=== PATIENT | male | born 1960 | race Caucasian/White ===

== ENCOUNTER 2023-10-26 19:56 | Emergency (ER) | payer OTHER, SELFPAY ==
[2023-10-27] MEDS ORDERED: GLIP10TA18 PO (10:43)
[2023-10-27] MEDS ORDERED: VITA1CHW3 PO (14:40)
== END 2023-10-26 20:15 | disposition left against medical advice (07) ==
LOC: M ED 19:56
DX: Z53.21 Procedure and treatment not carried out due to patient leaving prior to being seen by health care provider (principal)

== ENCOUNTER 2023-10-27 10:31 | Inpatient (IN) | payer BC, MEDICARE, SELFPAY ==
[~2023-10-27] VITALS: Ht 180.3 cm; Wt 96.5 kg
[~2023-10-27 10:31] MED LIST: NICOTINE 14 MG/24 HR TRANSDERMAL TD SCH
[2023-10-27] MEDS ORDERED: GLIP10TA18 PO (10:43)
[2023-10-27 11:37] LABS: BASO % 0.2 % (0.0-1.0); EOS % 0.1 % (0.0-3.0); HEMATOCRIT 40.5 % (42.0-52.0); HEMOGLOBIN 13.1 g/dl (13.5-17.5); LYMPH # 1.1 10^3/uL (1.5-5.0); LYMPH % 7.1 % (24.0-44.0); MEAN CORPUSCULAR HGB CONC 32.3 g/dl (32.0-36.5); MEAN CORPUSCULAR VOLUME 89.6 fl (80.0-96.0); MONO # 1.2 10^3/uL (0.0-0.8); MONO % 8.1 % (2.0-8.0); NEUTROPHILS # 12.8 10^3/uL (1.5-8.5); NEUTROPHILS % 84.1 % (36.0-66.0); PLATELET COUNT, AUTOMATED 206 10^3/uL (150-450); RED BLOOD COUNT 4.52 10^6/uL (4.30-6.10); WHITE BLOOD COUNT 15.3 10^3/uL (4.0-10.0)
[2023-10-27 11:44] LABS: ERYTHROCYTE SEDIMENTATION RATE 59 mm/hr (0-20)
[2023-10-27] MEDS: NS 1,000 ML IV ONE (12:10)
[2023-10-27] MEDS: cefTRIAXone SOD 1 GM in D5W MINI-BAG PLUS 50 ML IV ONE (12:27)
[2023-10-27] MEDS: NICOTINE 21MG/24HR 1 EA TRANSDERMAL TD ONE (13:13)
[2023-10-27 13:18] LABS: PROCALCITONIN 0.15 ng/ml
[2023-10-27 13:19] LABS: ALBUMIN 2.8 G/DL (3.2-5.2); ALKALINE PHOSPHATASE 144 U/L (46-116); ALT/SGPT 14 U/L (7.0-40); AST/SGOT 18 U/L (<34); BILIRUBIN,DIRECT 0.7 MG/DL (<0.4); BILIRUBIN,TOTAL 1.4 MG/DL (0.3-1.2); BLOOD UREA NITROGEN 18 MG/DL (9-23); CALCIUM LEVEL 8.6 MG/DL (8.3-10.6); CARBON DIOXIDE LEVEL 28 MMOL/L (20-31); CHLORIDE LEVEL 106 MMOL/L (98-107); CREATININE FOR GFR 1.16 MG/DL (0.70-1.30); GLOMERULAR FILTRATION RATE > 60.0 (>49); GLUCOSE, FASTING 72 MG/DL (74-106); POTASSIUM SERUM 3.5 MMOL/L (3.5-5.1); SODIUM LEVEL 141 MMOL/L (136-145)
[2023-10-27] MEDS ORDERED: ceFAZolin SOD 1 GM in D5W MINI-BAG PLUS 50 ML IV SCH (14:25)
[2023-10-27] MEDS ORDERED: GLUCOSE 4 GM CHEW PO PRN (14:25)
[2023-10-27] MEDS ORDERED: PERCOCET 5MG/325MG TAB PO PRN (14:25)
[2023-10-27] MEDS ORDERED: GLUCAGON INJ 1MG VIAL SC PRN (14:25)
[2023-10-27] MEDS ORDERED: ACETAMINOPHEN TAB 650MG DOSE (2X325MG) PO PRN (14:25)
[2023-10-27] MEDS ORDERED: NALOXONE INJ 0.4MG/1ML VIAL IV PRN (14:25)
[2023-10-27] MEDS ORDERED: SENOKOT S TAB PO PRN (14:25)
[2023-10-27] MEDS ORDERED: DEXTROSE 50% 50ML SYRINGE IV PRN (14:25)
[2023-10-27] MEDS ORDERED: VITA1CHW3 PO (14:40)
[2023-10-27] MEDS ORDERED: HOME MED LIST COMPLETE! XX SCH (14:45)
[2023-10-27 14:50] LABS: CHOLESTEROL LEVEL 121 MG/DL (<200); CHOLESTEROL RISK RATIO 4.24 (<5); FREE T3 2.5 PG/ML (2.3-4.2); HDL CHOLESTEROL 28.5 MG/DL (>40); LDL CHOLESTEROL 75.1 MG/DL (<100); NON-HDL-C 92.5 MG/DL; TRIGLYCERIDES LEVEL 87 MG/DL (<150)
[2023-10-27 14:53] LABS: FREE T4 1.15 NG/DL (0.89-1.76)
[2023-10-27] MEDS ORDERED: IPRATROPIUM 0.5MG/ALBUTEROL 2.5MG INH SOL UD 3ML (DUONEB) NEB PRN (16:10)
[2023-10-27] MEDS ORDERED: ISOVUE-370 76% 100ML VIAL As Ordered ONE (16:13)
[2023-10-27 16:40] VITALS: BP 152/73; TEMP 98.1; O2SAT 98
[2023-10-27] MEDS: IPRATROPIUM 0.5MG/ALBUTEROL 2.5MG INH SOL UD 3ML (DUONEB) NEB ONE (16:56)
[2023-10-27] MEDS ORDERED: CEFEPIME HCL 1 GM in D5W MINI-BAG PLUS 50 ML IV SCH (17:00)
[2023-10-27] MEDS: INSULIN LISPRO (NovoLOG) PER UNIT SC SCH ×2 (17:14→20:21)
[2023-10-27] MEDS: FUROSEMIDE 40MG/4ML VIAL IV ONE (17:34)
[2023-10-27] MEDS: LACTOBACILLUS ACIDOPHILUS CAP (BACID) PO SCH (17:34)
[2023-10-27] MEDS: ENOXAPARIN 40MG/0.4ML SYRINGE (J1650 PER 10MG) SC ONE (17:34)
[2023-10-27] MEDS: FUROSEMIDE 40MG/4ML VIAL IV SCH (17:35)
[2023-10-27] MEDS: CEFEPIME HCL 2 GM in D5W MINI-BAG PLUS 50 ML IV SCH (18:35)
[2023-10-27] MEDS: IPRATROPIUM 0.5MG/ALBUTEROL 2.5MG INH SOL UD 3ML (DUONEB) NEB SCH (19:44)
[2023-10-27 19:48] VITALS: BP 175/82; TEMP 98.3; O2SAT 99
[2023-10-27 19:50] LABS: CK-MB VALUE MASS 2.1 NG/ML (<3.6)
[2023-10-27 19:53] LABS: MB/CK RELATIVE INDEX 1.03 (< OR =4)
[2023-10-27 20:00] VITALS: BP 175/82; TEMP 98.3; O2SAT 99
[2023-10-27] MEDS ORDERED: ceFAZolin SOD 2 GM in IV 1 EA IV SCH (22:00)
[2023-10-27 23:39] VITALS: BP 152/70; TEMP 98; O2SAT 96
[2023-10-28] VITALS (22 sets, daily range): BP systolic 136–169; BP diastolic 63–79; TEMP 97.4–98.6; O2SAT 86–99
[2023-10-28 02:09] LABS: CK-MB VALUE MASS 1.1 NG/ML (<3.6)
[2023-10-28 02:10] LABS: MB/CK RELATIVE INDEX 0.82 (< OR =4)
[2023-10-28] MEDS: amLODIPine 5 MG TAB PO ONE (02:23)
[2023-10-28 06:44] LABS: BASO % 0.1 % (0.0-1.0); EOS % 0.3 % (0.0-3.0); HEMATOCRIT 39.9 % (42.0-52.0); HEMOGLOBIN 13.1 g/dl (13.5-17.5); MEAN CORPUSCULAR HEMOGLOBIN 28.8 pg (27.0-33.0); MEAN CORPUSCULAR HGB CONC 32.8 g/dl (32.0-36.5); MEAN CORPUSCULAR VOLUME 87.7 fl (80.0-96.0); MONO # 1.2 10^3/uL (0.0-0.8); MONO % 8.4 % (2.0-8.0); NEUTROPHILS # 11.8 10^3/uL (1.5-8.5); NEUTROPHILS % 83.6 % (36.0-66.0); PLATELET COUNT, AUTOMATED 196 10^3/uL (150-450); RED BLOOD COUNT 4.55 10^6/uL (4.30-6.10); WHITE BLOOD COUNT 14.1 10^3/uL (4.0-10.0)
[2023-10-28 07:09] LABS: BLOOD UREA NITROGEN 18 MG/DL (9-23); CALCIUM LEVEL 8.7 MG/DL (8.3-10.6); CARBON DIOXIDE LEVEL 29 MMOL/L (20-31); CHLORIDE LEVEL 102 MMOL/L (98-107); CREATININE FOR GFR 1.22 MG/DL (0.70-1.30); GLOMERULAR FILTRATION RATE > 60.0 (>49); GLUCOSE, FASTING 99 MG/DL (74-106); MAGNESIUM LEVEL 1.8 MG/DL (1.8-2.4); POTASSIUM SERUM 3.3 MMOL/L (3.5-5.1); SODIUM LEVEL 137 MMOL/L (136-145)
[2023-10-28] MEDS: MORPHINE 4 MG/ML 1ML VIAL IV ONE (08:05)
[2023-10-28] MEDS ORDERED: ENOXAPARIN 40MG/0.4ML SYRINGE (J1650 PER 10MG) SC SCH (09:00)
[2023-10-28] MEDS: MAG SULF 1GM/100ML (MAG RUN) 1 GM in IV 1 EA IV ONE (10:04)
[2023-10-28] MEDS: NICOTINE 14 MG/24 HR TRANSDERMAL TD SCH (10:05)
[2023-10-28] MEDS: POTASSIUM CHLORIDE 10MEQ SR TABLET PO SCH (10:05)
[2023-10-29] VITALS (9 sets, daily range): BP systolic 118–172; BP diastolic 57–83; TEMP 96.9–97.5; O2SAT 91–97
[2023-10-29 06:21] LABS: BASO % 0.3 % (0.0-1.0); EOS # 0.1 10^3/uL (0.0-0.5); EOS % 0.9 % (0.0-3.0); HEMATOCRIT 40.2 % (42.0-52.0); LYMPH # 1.1 10^3/uL (1.5-5.0); LYMPH % 9.3 % (24.0-44.0); MEAN CORPUSCULAR HEMOGLOBIN 28.7 pg (27.0-33.0); MEAN CORPUSCULAR HGB CONC 32.3 g/dl (32.0-36.5); MEAN CORPUSCULAR VOLUME 88.7 fl (80.0-96.0); MONO # 0.9 10^3/uL (0.0-0.8); MONO % 8.2 % (2.0-8.0); NEUTROPHILS # 9.2 10^3/uL (1.5-8.5); NEUTROPHILS % 80.9 % (36.0-66.0); PLATELET COUNT, AUTOMATED 204 10^3/uL (150-450); RED BLOOD COUNT 4.53 10^6/uL (4.30-6.10); WHITE BLOOD COUNT 11.4 10^3/uL (4.0-10.0)
[2023-10-29 06:47] LABS: BLOOD UREA NITROGEN 24 MG/DL (9-23); CALCIUM LEVEL 8.3 MG/DL (8.3-10.6); CARBON DIOXIDE LEVEL 30 MMOL/L (20-31); CHLORIDE LEVEL 103 MMOL/L (98-107); CREATININE FOR GFR 1.28 MG/DL (0.70-1.30); GLOMERULAR FILTRATION RATE > 60.0 (>49); GLUCOSE, FASTING 117 MG/DL (74-106); POTASSIUM SERUM 3.8 MMOL/L (3.5-5.1); SODIUM LEVEL 139 MMOL/L (136-145)
[2023-10-30 04:00] VITALS: BP 170/79; TEMP 97.6; O2SAT 95
[2023-10-30 06:27] LABS: BASO % 0.4 % (0.0-1.0); EOS # 0.2 10^3/uL (0.0-0.5); EOS % 1.6 % (0.0-3.0); HEMATOCRIT 37.8 % (42.0-52.0); HEMOGLOBIN 12.4 g/dl (13.5-17.5); LYMPH # 1.2 10^3/uL (1.5-5.0); LYMPH % 11.3 % (24.0-44.0); MEAN CORPUSCULAR HEMOGLOBIN 29.2 pg (27.0-33.0); MEAN CORPUSCULAR HGB CONC 32.8 g/dl (32.0-36.5); MEAN CORPUSCULAR VOLUME 88.9 fl (80.0-96.0); MONO # 0.8 10^3/uL (0.0-0.8); MONO % 7.4 % (2.0-8.0); NEUTROPHILS # 8.5 10^3/uL (1.5-8.5); NEUTROPHILS % 78.8 % (36.0-66.0); PLATELET COUNT, AUTOMATED 236 10^3/uL (150-450); RED BLOOD COUNT 4.25 10^6/uL (4.30-6.10); WHITE BLOOD COUNT 10.8 10^3/uL (4.0-10.0)
[2023-10-30 06:50] LABS: BLOOD UREA NITROGEN 30 MG/DL (9-23); CARBON DIOXIDE LEVEL 30 MMOL/L (20-31); CHLORIDE LEVEL 101 MMOL/L (98-107); CREATININE FOR GFR 1.18 MG/DL (0.70-1.30); GLOMERULAR FILTRATION RATE > 60.0 (>49); GLUCOSE, FASTING 190 MG/DL (74-106); MAGNESIUM LEVEL 2.1 MG/DL (1.8-2.4); POTASSIUM SERUM 3.7 MMOL/L (3.5-5.1); SODIUM LEVEL 138 MMOL/L (136-145)
[2023-10-30 08:00] VITALS: BP_SYST 133; BP_SYST 170; BP_DIAS 64; BP_DIAS 79; TEMP 97.4; TEMP 97.6; O2SAT 95; O2SAT 96
[2023-10-30 12:00] VITALS: BP 158/72; TEMP 97.6; O2SAT 96
[2023-10-30 16:00] VITALS: BP 136/62; TEMP 98; O2SAT 96
[2023-10-30] MEDS: cefTRIAXone SOD 2 GM in D5W MINI-BAG PLUS 50 ML IV SCH (18:15)
[2023-10-30 20:38] VITALS: BP 137/61; TEMP 97.5; O2SAT 95
[2023-10-30 23:35] VITALS: BP 136/69; TEMP 96.9; O2SAT 90
[2023-10-31] VITALS: BP 136/69; TEMP 96.9; O2SAT 90
[2023-10-31 05:51] VITALS: BP 158/78
[2023-10-31 06:29] LABS: BASO % 0.4 % (0.0-1.0); EOS # 0.2 10^3/uL (0.0-0.5); EOS % 1.7 % (0.0-3.0); LYMPH % 9.8 % (24.0-44.0); MEAN CORPUSCULAR HEMOGLOBIN 28.8 pg (27.0-33.0); MEAN CORPUSCULAR HGB CONC 32.5 g/dl (32.0-36.5); MEAN CORPUSCULAR VOLUME 88.7 fl (80.0-96.0); MONO # 0.9 10^3/uL (0.0-0.8); MONO % 8.7 % (2.0-8.0); NEUTROPHILS # 8.3 10^3/uL (1.5-8.5); NEUTROPHILS % 79.1 % (36.0-66.0); PLATELET COUNT, AUTOMATED 246 10^3/uL (150-450); RED BLOOD COUNT 4.51 10^6/uL (4.30-6.10); WHITE BLOOD COUNT 10.4 10^3/uL (4.0-10.0)
[2023-10-31 06:53] LABS: BLOOD UREA NITROGEN 33 MG/DL (9-23); CALCIUM LEVEL 9.1 MG/DL (8.3-10.6); CARBON DIOXIDE LEVEL 30 MMOL/L (20-31); CHLORIDE LEVEL 101 MMOL/L (98-107); CREATININE FOR GFR 1.19 MG/DL (0.70-1.30); GLOMERULAR FILTRATION RATE > 60.0 (>49); GLUCOSE, FASTING 208 MG/DL (74-106); POTASSIUM SERUM 3.9 MMOL/L (3.5-5.1); SODIUM LEVEL 138 MMOL/L (136-145)
[2023-10-31 08:20] VITALS: BP 148/67; TEMP 98; O2SAT 96
[2023-10-31 12:15] VITALS: BP 146/67; TEMP 98.2; O2SAT 97
[2023-10-31] MEDS: TORSEMIDE 20 MG TAB PO SCH (18:04)
[2023-10-31 19:15] VITALS: BP 151/65; TEMP 97.8; O2SAT 90
[2023-10-31 23:37] VITALS: BP 156/77; TEMP 98.6; O2SAT 94
[2023-11-01 06:09] LABS: BASO # 0.1 10^3/uL (0.0-0.2); BASO % 0.5 % (0.0-1.0); EOS # 0.2 10^3/uL (0.0-0.5); EOS % 1.6 % (0.0-3.0); HEMATOCRIT 40.1 % (42.0-52.0); LYMPH # 1.1 10^3/uL (1.5-5.0); LYMPH % 10.4 % (24.0-44.0); MEAN CORPUSCULAR HGB CONC 32.4 g/dl (32.0-36.5); MEAN CORPUSCULAR VOLUME 89.3 fl (80.0-96.0); MONO # 0.8 10^3/uL (0.0-0.8); NEUTROPHILS # 8.2 10^3/uL (1.5-8.5); PLATELET COUNT, AUTOMATED 271 10^3/uL (150-450); RED BLOOD COUNT 4.49 10^6/uL (4.30-6.10); WHITE BLOOD COUNT 10.3 10^3/uL (4.0-10.0)
[2023-11-01 06:29] LABS: CALCIUM LEVEL 9.2 MG/DL (8.3-10.6); CREATININE FOR GFR 1.33 MG/DL (0.70-1.30); GLOMERULAR FILTRATION RATE 57.6 (>49)
[2023-11-01 08:00] VITALS: BP 163/77; TEMP 98.1; O2SAT 98
[2023-11-01 08:24] VITALS: BP 163/77
[2023-11-01 09:45] VITALS: BP 143/69; TEMP 97.7; O2SAT 96
[2023-11-01] MEDS ORDERED: AMLO1TAB25 PO (11:54)
[2023-11-01] MEDS ORDERED: RISATAB3 PO (11:54)
[2023-11-01] MEDS ORDERED: TORS20TA2 PO (11:54)
[2023-11-01] MEDS ORDERED: CEFD300CAP PO (11:54)
[2023-11-02] MEDS ORDERED: CEFDINIR 300 MG CAP (OMNICEF) PO SCH (09:00)
== END 2023-11-01 14:20 | disposition home health service (06) | DRG 622 ==
LOC: M ED 10:31 → M ED INP 14:14 → M PCU 16:30 → M MS4PR 11-01 09:26
PROVIDERS: ADMIT General Practice; ATTEND Internal Medicine Nephrology
PROC: B246ZZZ Ultrasonography of Right and Left Heart (ICD-10-PCS; 2023-10-27)
PROC: 0JBR0ZZ Excision of Left Foot Subcutaneous Tissue and Fascia, Open Approach (ICD-10-PCS; principal; 2023-10-28)
DX: E11.621 Type 2 diabetes mellitus with foot ulcer (principal); I50.31 Acute diastolic (congestive) heart failure; L97.428 Non-pressure chronic ulcer of left heel and midfoot with other specified severity; L97.929 Non-pressure chronic ulcer of unspecified part of left lower leg with unspecified severity; L03.116 Cellulitis of left lower limb; J98.11 Atelectasis; Z89.511 Acquired absence of right leg below knee; F17.210 Nicotine dependence, cigarettes, uncomplicated; E11.319 Type 2 diabetes mellitus with unspecified diabetic retinopathy without macular edema; I87.2 Venous insufficiency (chronic) (peripheral); E11.622 Type 2 diabetes mellitus with other skin ulcer; R09.02 Hypoxemia; I16.0 Hypertensive urgency; Z79.84 Long term (current) use of oral hypoglycemic drugs; Z79.899 Other long term (current) drug therapy; E11.40 Type 2 diabetes mellitus with diabetic neuropathy, unspecified; J84.10 Pulmonary fibrosis, unspecified; I25.10 Atherosclerotic heart disease of native coronary artery without angina pectoris; E66.9 Obesity, unspecified; I11.0 Hypertensive heart disease with heart failure; I27.20 Pulmonary hypertension, unspecified; E11.51 Type 2 diabetes mellitus with diabetic peripheral angiopathy without gangrene; B95.61 Methicillin susceptible Staphylococcus aureus infection as the cause of diseases classified elsewhere; B96.4 Proteus (mirabilis) (morganii) as the cause of diseases classified elsewhere; B95.5 Unspecified streptococcus as the cause of diseases classified elsewhere; Z68.29 Body mass index [BMI] 29.0-29.9, adult

== ENCOUNTER → 2023-11-13 | Outpatient (REF) | payer MEDICARE ==
[~2023-11-13] MED LIST changes: +AMLO1TAB25 PO; +CEFD300CAP PO; +GLIP10TA18 PO; -NICOTINE 14 MG/24 HR TRANSDERMAL TD SCH; +RISATAB3 PO; +TORS20TA2 PO; +VITA1CHW3 PO
== END ==
LOC: M SFHCPLAZ 14:51
PROVIDERS: ATTEND Family Medicine
DX: I10 Essential (primary) hypertension (principal); E11.69 Type 2 diabetes mellitus with other specified complication; E80.6 Other disorders of bilirubin metabolism

== ENCOUNTER 2023-11-16 14:58 | Inpatient (IN) | payer MEDICARE ==
[~2023-11-16] VITALS: Ht 182.9 cm; Wt 96.5 kg
[2023-11-17] VITALS (8 sets, daily range): BP systolic 138–158; BP diastolic 68–79; TEMP 96.3–98; O2SAT 89–94
[2023-11-17 01:27] LABS: BASO % 0.3 % (0.0-1.0); EOS # 0.1 10^3/uL (0.0-0.5); EOS % 0.6 % (0.0-3.0); HEMATOCRIT 38.7 % (42.0-52.0); HEMOGLOBIN 12.6 g/dl (13.5-17.5); LYMPH # 1.2 10^3/uL (1.5-5.0); LYMPH % 8.9 % (24.0-44.0); MEAN CORPUSCULAR HGB CONC 32.6 g/dl (32.0-36.5); MEAN CORPUSCULAR VOLUME 89.2 fl (80.0-96.0); MONO # 0.8 10^3/uL (0.0-0.8); MONO % 6.2 % (2.0-8.0); NEUTROPHILS # 11.3 10^3/uL (1.5-8.5); NEUTROPHILS % 83.6 % (36.0-66.0); PLATELET COUNT, AUTOMATED 278 10^3/uL (150-450); RED BLOOD COUNT 4.34 10^6/uL (4.30-6.10); WHITE BLOOD COUNT 13.6 10^3/uL (4.0-10.0)
[2023-11-17 01:43] LABS: ERYTHROCYTE SEDIMENTATION RATE 102 mm/hr (0-20)
[2023-11-17 01:49] LABS: ALBUMIN 3.3 G/DL (3.2-5.2); ALKALINE PHOSPHATASE 219 U/L (46-116); ALT/SGPT 22 U/L (7.0-40); AST/SGOT 16 U/L (<34); BILIRUBIN,DIRECT 0.9 MG/DL (<0.4); BILIRUBIN,TOTAL 1.8 MG/DL (0.3-1.2); BLOOD UREA NITROGEN 26 MG/DL (9-23); CALCIUM LEVEL 9.1 MG/DL (8.3-10.6); CARBON DIOXIDE LEVEL 25 MMOL/L (20-31); CHLORIDE LEVEL 108 MMOL/L (98-107); CREATININE FOR GFR 1.13 MG/DL (0.70-1.30); GLOMERULAR FILTRATION RATE > 60.0 (>49); GLUCOSE, FASTING 129 MG/DL (74-106); POTASSIUM SERUM 3.7 MMOL/L (3.5-5.1); SODIUM LEVEL 140 MMOL/L (136-145); TOTAL PROTEIN 7.3 G/DL (5.7-8.2)
[2023-11-17 03:36] LABS: PROCALCITONIN 0.09 ng/ml
[2023-11-17] MEDS: AZITHROMYCIN INJ 500 MG, VIAL MATE ADAPTER 1 EACH in NS 250 ML IV ONE (06:28)
[2023-11-17] MEDS: cefTRIAXone SOD 1 GM in D5W MINI-BAG PLUS 50 ML IV ONE (06:28)
[2023-11-17] MEDS: FUROSEMIDE 100MG/10ML VIAL IV ONE (07:40)
[2023-11-17] MEDS ORDERED: TORS20TA2 PO (09:25)
[2023-11-17] MEDS ORDERED: MAALOX 30 ML SUSP *UDC PO PRN (09:25)
[2023-11-17] MEDS ORDERED: AMLO1TAB25 PO (09:25)
[2023-11-17] MEDS ORDERED: MOM 30ML SUSPENSION UDC PO PRN (09:25)
[2023-11-17] MEDS ORDERED: BACI1CAP PO (09:25)
[2023-11-17] MEDS ORDERED: ACIDCAP PO (09:26)
[2023-11-17] MEDS ORDERED: HOME MED LIST COMPLETE! XX SCH (09:30)
[2023-11-17] MEDS ORDERED: ISOVUE-370 76% 100ML VIAL As Ordered ONE (10:11)
[2023-11-17] MEDS ORDERED: DEXTROSE 50% 50ML SYRINGE IV PRN (16:50)
[2023-11-17] MEDS ORDERED: GLUCOSE 4 GM CHEW PO PRN (16:50)
[2023-11-17] MEDS ORDERED: GLUCAGON INJ 1MG VIAL SC PRN (16:50)
[2023-11-17] MEDS: CEFEPIME HCL 2 GM in D5W MINI-BAG PLUS 50 ML IV SCH (18:15)
[2023-11-17] MEDS: TORSEMIDE 20 MG TAB PO SCH (18:16)
[2023-11-17] MEDS: INSULIN LISPRO (NovoLOG) PER UNIT SC SCH ×2 (18:16→21:00)
[2023-11-17] MEDS: NYSTATIN 100,000 UNITS/GM TOPICAL PWD 15GM TOP SCH (21:36)
[2023-11-17] MEDS: FUROSEMIDE 40MG/4ML VIAL IV ONE (21:36)
[2023-11-18] VITALS (11 sets, daily range): BP systolic 128–160; BP diastolic 62–74; TEMP 97.6–98.8; O2SAT 93–98
[2023-11-18] MEDS ORDERED: cefTRIAXone SOD 2 GM in D5W MINI-BAG PLUS 50 ML IV SCH (06:00)
[2023-11-18] MEDS ORDERED: AZITHROMYCIN 250MG TABLET PO SCH (06:00)
[2023-11-18 07:33] LABS: BASO % 0.2 % (0.0-1.0); EOS # 0.1 10^3/uL (0.0-0.5); EOS % 0.8 % (0.0-3.0); HEMATOCRIT 34.9 % (42.0-52.0); HEMOGLOBIN 11.4 g/dl (13.5-17.5); LYMPH # 1.3 10^3/uL (1.5-5.0); LYMPH % 9.2 % (24.0-44.0); MEAN CORPUSCULAR HEMOGLOBIN 29.2 pg (27.0-33.0); MEAN CORPUSCULAR HGB CONC 32.7 g/dl (32.0-36.5); MEAN CORPUSCULAR VOLUME 89.3 fl (80.0-96.0); MONO % 7.2 % (2.0-8.0); NEUTROPHILS # 11.1 10^3/uL (1.5-8.5); NEUTROPHILS % 82.2 % (36.0-66.0); PLATELET COUNT, AUTOMATED 258 10^3/uL (150-450); RED BLOOD COUNT 3.91 10^6/uL (4.30-6.10); WHITE BLOOD COUNT 13.6 10^3/uL (4.0-10.0)
[2023-11-18 07:45] LABS: BLOOD UREA NITROGEN 29 MG/DL (9-23); CALCIUM LEVEL 8.7 MG/DL (8.3-10.6); CARBON DIOXIDE LEVEL 27 MMOL/L (20-31); CHLORIDE LEVEL 106 MMOL/L (98-107); CREATININE FOR GFR 1.26 MG/DL (0.70-1.30); GLOMERULAR FILTRATION RATE > 60.0 (>49); GLUCOSE, FASTING 218 MG/DL (74-106); MAGNESIUM LEVEL 1.9 MG/DL (1.8-2.4); POTASSIUM SERUM 3.7 MMOL/L (3.5-5.1); SODIUM LEVEL 141 MMOL/L (136-145)
[2023-11-18] MEDS: VANCOMYCIN HCL 1,000 MG, VIAL MATE ADAPTER 1 EACH in D5W 250 ML IV ONE (14:55)
[2023-11-18] MEDS: VANCOMYCIN HCL 750 MG, VIAL MATE ADAPTER 1 EACH in D5W 250 ML IV ONE (16:55)
[2023-11-18] MEDS: VANCOMYCIN HCL 750 MG, VIAL MATE ADAPTER 1 EACH in D5W 250 ML IV SCH (23:32)
[2023-11-18] MEDS: RAMELTEON 8 MG TAB (ROZEREM) PO ONE (23:53)
[2023-11-19] MEDS: VANCOMYCIN HCL 500 MG in D5W MINI-BAG PLUS 100 ML IV SCH (01:22)
[2023-11-19 03:37] VITALS: BP 164/77; TEMP 98.2; O2SAT 96
[2023-11-19 07:38] LABS: BASO % 0.4 % (0.0-1.0); EOS # 0.1 10^3/uL (0.0-0.5); EOS % 1.1 % (0.0-3.0); HEMATOCRIT 33.3 % (42.0-52.0); HEMOGLOBIN 10.9 g/dl (13.5-17.5); LYMPH # 1.1 10^3/uL (1.5-5.0); LYMPH % 9.4 % (24.0-44.0); MEAN CORPUSCULAR HEMOGLOBIN 28.9 pg (27.0-33.0); MEAN CORPUSCULAR HGB CONC 32.7 g/dl (32.0-36.5); MEAN CORPUSCULAR VOLUME 88.3 fl (80.0-96.0); MONO # 0.9 10^3/uL (0.0-0.8); NEUTROPHILS # 9.2 10^3/uL (1.5-8.5); NEUTROPHILS % 80.8 % (36.0-66.0); PLATELET COUNT, AUTOMATED 240 10^3/uL (150-450); RED BLOOD COUNT 3.77 10^6/uL (4.30-6.10); WHITE BLOOD COUNT 11.4 10^3/uL (4.0-10.0)
[2023-11-19 07:49] VITALS: BP 150/73; TEMP 98; O2SAT 95
[2023-11-19 08:00] LABS: CALCIUM LEVEL 8.6 MG/DL (8.3-10.6); CREATININE FOR GFR 1.3 MG/DL (0.70-1.30); GLOMERULAR FILTRATION RATE 59.2 (>49); MAGNESIUM LEVEL 1.8 MG/DL (1.8-2.4); POTASSIUM SERUM 3.8 MMOL/L (3.5-5.1)
[2023-11-19 08:01] LABS: ERYTHROCYTE SEDIMENTATION RATE 76 mm/hr (0-20)
[2023-11-19] MEDS: FUROSEMIDE 100MG/10ML VIAL IV ONE (09:32)
[2023-11-19 10:00] VITALS: BP 160/77; TEMP 98.1; O2SAT 95
[2023-11-19] MEDS: VANCOMYCIN HCL 1,000 MG, VIAL MATE ADAPTER 1 EACH in D5W 250 ML IV SCH (12:36)
[2023-11-19 16:00] VITALS: BP 155/70; TEMP 98; O2SAT 95
[2023-11-19 20:37] VITALS: BP 154/76; TEMP 97.8; O2SAT 97
[2023-11-20 03:01] VITALS: BP 157/74; TEMP 98; O2SAT 95
[2023-11-20 05:40] LABS: BASO # 0.1 10^3/uL (0.0-0.2); BASO % 0.4 % (0.0-1.0); EOS # 0.2 10^3/uL (0.0-0.5); EOS % 1.3 % (0.0-3.0); HEMATOCRIT 32.9 % (42.0-52.0); HEMOGLOBIN 10.7 g/dl (13.5-17.5); LYMPH # 1.2 10^3/uL (1.5-5.0); LYMPH % 10.5 % (24.0-44.0); MEAN CORPUSCULAR HEMOGLOBIN 28.8 pg (27.0-33.0); MEAN CORPUSCULAR HGB CONC 32.5 g/dl (32.0-36.5); MEAN CORPUSCULAR VOLUME 88.7 fl (80.0-96.0); MONO # 0.9 10^3/uL (0.0-0.8); MONO % 7.8 % (2.0-8.0); NEUTROPHILS # 9.2 10^3/uL (1.5-8.5); NEUTROPHILS % 79.7 % (36.0-66.0); PLATELET COUNT, AUTOMATED 245 10^3/uL (150-450); RED BLOOD COUNT 3.71 10^6/uL (4.30-6.10); WHITE BLOOD COUNT 11.6 10^3/uL (4.0-10.0)
[2023-11-20 05:57] LABS: BLOOD UREA NITROGEN 28 MG/DL (9-23); CALCIUM LEVEL 8.6 MG/DL (8.3-10.6); CARBON DIOXIDE LEVEL 26 MMOL/L (20-31); CHLORIDE LEVEL 105 MMOL/L (98-107); CREATININE FOR GFR 1.18 MG/DL (0.70-1.30); GLOMERULAR FILTRATION RATE > 60.0 (>49); GLUCOSE, FASTING 181 MG/DL (74-106); MAGNESIUM LEVEL 1.9 MG/DL (1.8-2.4); POTASSIUM SERUM 3.6 MMOL/L (3.5-5.1); SODIUM LEVEL 139 MMOL/L (136-145)
[2023-11-20 06:41] VITALS: BP 140/79; TEMP 97.9; O2SAT 88
[2023-11-20] MEDS: TORSEMIDE 20 MG TAB PO SCH (08:19)
[2023-11-20 12:12] VITALS: BP 144/75; TEMP 98.1; O2SAT 95
[2023-11-20] MEDS: AMPICILLIN SOD/SULBACTAM SOD 3 GM in D5W MINI-BAG PLUS 100 ML IV SCH (12:44)
[2023-11-20 19:46] VITALS: BP 160/75; TEMP 98.2; O2SAT 95
[2023-11-21 04:57] VITALS: BP 156/76; TEMP 98.1; O2SAT 96
[2023-11-21 06:41] LABS: BASO % 0.4 % (0.0-1.0); EOS # 0.2 10^3/uL (0.0-0.5); EOS % 1.4 % (0.0-3.0); HEMATOCRIT 34.7 % (42.0-52.0); LYMPH # 1.1 10^3/uL (1.5-5.0); LYMPH % 9.8 % (24.0-44.0); MEAN CORPUSCULAR HEMOGLOBIN 28.4 pg (27.0-33.0); MEAN CORPUSCULAR HGB CONC 31.7 g/dl (32.0-36.5); MEAN CORPUSCULAR VOLUME 89.4 fl (80.0-96.0); MONO # 0.9 10^3/uL (0.0-0.8); MONO % 8.4 % (2.0-8.0); NEUTROPHILS # 8.8 10^3/uL (1.5-8.5); NEUTROPHILS % 79.6 % (36.0-66.0); PLATELET COUNT, AUTOMATED 247 10^3/uL (150-450); RED BLOOD COUNT 3.88 10^6/uL (4.30-6.10)
[2023-11-21 07:06] LABS: CALCIUM LEVEL 8.9 MG/DL (8.3-10.6); CREATININE FOR GFR 1.38 MG/DL (0.70-1.30); GLOMERULAR FILTRATION RATE 55.2 (>49); POTASSIUM SERUM 3.6 MMOL/L (3.5-5.1)
[2023-11-21 12:00] VITALS: BP 138/63; TEMP 97.9; O2SAT 92
[2023-11-21] MEDS: SODIUM CHLORIDE 0.9% INJ 10 ML SYR IV SCH (17:22)
[2023-11-21 20:34] VITALS: BP 167/65; TEMP 98.2; O2SAT 92
[2023-11-21] MEDS: PERCOCET 5MG/325MG TAB PO ONE (21:10)
[2023-11-22 06:38] LABS: BASO % 0.3 % (0.0-1.0); EOS # 0.2 10^3/uL (0.0-0.5); EOS % 1.7 % (0.0-3.0); HEMATOCRIT 34.9 % (42.0-52.0); HEMOGLOBIN 11.3 g/dl (13.5-17.5); LYMPH # 1.4 10^3/uL (1.5-5.0); LYMPH % 14.9 % (24.0-44.0); MEAN CORPUSCULAR HGB CONC 32.4 g/dl (32.0-36.5); MEAN CORPUSCULAR VOLUME 89.5 fl (80.0-96.0); MONO # 0.7 10^3/uL (0.0-0.8); MONO % 7.6 % (2.0-8.0); NEUTROPHILS # 7.1 10^3/uL (1.5-8.5); NEUTROPHILS % 75.2 % (36.0-66.0); PLATELET COUNT, AUTOMATED 256 10^3/uL (150-450); WHITE BLOOD COUNT 9.5 10^3/uL (4.0-10.0)
[2023-11-22 07:17] LABS: BLOOD UREA NITROGEN 32 MG/DL (9-23); CARBON DIOXIDE LEVEL 29 MMOL/L (20-31); CHLORIDE LEVEL 105 MMOL/L (98-107); GLOMERULAR FILTRATION RATE > 60.0 (>49); GLUCOSE, FASTING 192 MG/DL (74-106); POTASSIUM SERUM 3.7 MMOL/L (3.5-5.1); SODIUM LEVEL 139 MMOL/L (136-145)
[2023-11-22 12:36] VITALS: BP 140/71; TEMP 98.2; O2SAT 99
[2023-11-22] MEDS: cefTRIAXone SOD 2 GM in D5W MINI-BAG PLUS 50 ML IV SCH (17:05)
[2023-11-22] MEDS: SODIUM CHLORIDE 0.9% INJ 10 ML SYR IV PRN (18:11)
[2023-11-22 19:57] VITALS: BP 142/72; TEMP 98.1; O2SAT 93
[2023-11-22] MEDS: AUGMENTIN 875 MG TAB PO SCH (21:33)
[2023-11-23 04:09] VITALS: BP 144/73; TEMP 98.6; O2SAT 88
[2023-11-23 07:17] LABS: BASO % 0.2 % (0.0-1.0); EOS # 0.1 10^3/uL (0.0-0.5); EOS % 1.4 % (0.0-3.0); HEMATOCRIT 33.7 % (42.0-52.0); HEMOGLOBIN 10.6 g/dl (13.5-17.5); LYMPH # 1.1 10^3/uL (1.5-5.0); MEAN CORPUSCULAR HEMOGLOBIN 28.2 pg (27.0-33.0); MEAN CORPUSCULAR HGB CONC 31.5 g/dl (32.0-36.5); MEAN CORPUSCULAR VOLUME 89.6 fl (80.0-96.0); MONO # 0.7 10^3/uL (0.0-0.8); MONO % 6.8 % (2.0-8.0); NEUTROPHILS # 8.3 10^3/uL (1.5-8.5); NEUTROPHILS % 80.1 % (36.0-66.0); PLATELET COUNT, AUTOMATED 259 10^3/uL (150-450); RED BLOOD COUNT 3.76 10^6/uL (4.30-6.10); WHITE BLOOD COUNT 10.4 10^3/uL (4.0-10.0)
[2023-11-23 07:48] LABS: BLOOD UREA NITROGEN 32 MG/DL (9-23); CARBON DIOXIDE LEVEL 26 MMOL/L (20-31); CHLORIDE LEVEL 108 MMOL/L (98-107); CREATININE FOR GFR 1.17 MG/DL (0.70-1.30); GLOMERULAR FILTRATION RATE > 60.0 (>49); GLUCOSE, FASTING 163 MG/DL (74-106); SODIUM LEVEL 142 MMOL/L (136-145)
[2023-11-24 06:22] VITALS: BP 150/81; TEMP 98.1; O2SAT 93
[2023-11-24 07:19] LABS: BASO % 0.4 % (0.0-1.0); EOS # 0.2 10^3/uL (0.0-0.5); EOS % 1.9 % (0.0-3.0); HEMATOCRIT 35.8 % (42.0-52.0); HEMOGLOBIN 11.5 g/dl (13.5-17.5); LYMPH # 1.3 10^3/uL (1.5-5.0); MEAN CORPUSCULAR HEMOGLOBIN 28.5 pg (27.0-33.0); MEAN CORPUSCULAR HGB CONC 32.1 g/dl (32.0-36.5); MEAN CORPUSCULAR VOLUME 88.8 fl (80.0-96.0); MONO # 0.7 10^3/uL (0.0-0.8); MONO % 7.6 % (2.0-8.0); NEUTROPHILS # 7.5 10^3/uL (1.5-8.5); NEUTROPHILS % 76.7 % (36.0-66.0); PLATELET COUNT, AUTOMATED 262 10^3/uL (150-450); RED BLOOD COUNT 4.03 10^6/uL (4.30-6.10); WHITE BLOOD COUNT 9.7 10^3/uL (4.0-10.0)
[2023-11-24 07:42] LABS: BLOOD UREA NITROGEN 35 MG/DL (9-23); CALCIUM LEVEL 9.2 MG/DL (8.3-10.6); CARBON DIOXIDE LEVEL 27 MMOL/L (20-31); CHLORIDE LEVEL 106 MMOL/L (98-107); CREATININE FOR GFR 1.09 MG/DL (0.70-1.30); GLOMERULAR FILTRATION RATE > 60.0 (>49); GLUCOSE, FASTING 162 MG/DL (74-106); POTASSIUM SERUM 3.7 MMOL/L (3.5-5.1); SODIUM LEVEL 140 MMOL/L (136-145)
[2023-11-24] MEDS: ENOXAPARIN 40MG/0.4ML SYRINGE (J1650 PER 10MG) SC SCH (09:00)
[2023-11-24 12:11] VITALS: BP 151/82; TEMP 98.2; O2SAT 92
[2023-11-24 21:00] VITALS: BP 141/64; TEMP 97.9; O2SAT 94
[2023-11-25 12:04] VITALS: BP 152/74; TEMP 98.1; O2SAT 94
[2023-11-25 20:00] VITALS: BP 147/76; TEMP 98.4; O2SAT 94
[2023-11-26] MEDS: RAMELTEON 8 MG TAB (ROZEREM) PO PRN (02:33)
[2023-11-26 04:00] VITALS: BP 145/67; TEMP 98.4; O2SAT 94
[2023-11-26 07:20] LABS: HEMATOCRIT 35.6 % (42.0-52.0); HEMOGLOBIN 11.6 g/dl (13.5-17.5); MEAN CORPUSCULAR HEMOGLOBIN 28.9 pg (27.0-33.0); MEAN CORPUSCULAR HGB CONC 32.6 g/dl (32.0-36.5); MEAN CORPUSCULAR VOLUME 88.8 fl (80.0-96.0); PLATELET COUNT, AUTOMATED 279 10^3/uL (150-450); RED BLOOD COUNT 4.01 10^6/uL (4.30-6.10); WHITE BLOOD COUNT 10.3 10^3/uL (4.0-10.0)
[2023-11-26 07:43] LABS: BLOOD UREA NITROGEN 30 MG/DL (9-23); CALCIUM LEVEL 9.4 MG/DL (8.3-10.6); CARBON DIOXIDE LEVEL 26 MMOL/L (20-31); CHLORIDE LEVEL 107 MMOL/L (98-107); CREATININE FOR GFR 1.12 MG/DL (0.70-1.30); GLOMERULAR FILTRATION RATE > 60.0 (>49); GLUCOSE, FASTING 131 MG/DL (74-106); SODIUM LEVEL 140 MMOL/L (136-145)
[2023-11-26 12:00] VITALS: TEMP 98.1; O2SAT 93
[2023-11-26 20:56] VITALS: BP 157/77; TEMP 98.1
[2023-11-27 05:01] VITALS: BP 164/82; TEMP 97.5
[2023-11-27 08:20] LABS: BLOOD UREA NITROGEN 31 MG/DL (9-23); CALCIUM LEVEL 9.3 MG/DL (8.3-10.6); CARBON DIOXIDE LEVEL 27 MMOL/L (20-31); CHLORIDE LEVEL 106 MMOL/L (98-107); CREATININE FOR GFR 1.14 MG/DL (0.70-1.30); GLOMERULAR FILTRATION RATE > 60.0 (>49); GLUCOSE, FASTING 126 MG/DL (74-106); MAGNESIUM LEVEL 1.9 MG/DL (1.8-2.4); SODIUM LEVEL 139 MMOL/L (136-145)
[2023-11-27 12:00] VITALS: BP 153/80; TEMP 98.4; O2SAT 92
[2023-11-27 19:48] VITALS: BP 154/79; TEMP 98.1; O2SAT 93
[2023-11-28 03:46] VITALS: BP 153/80; TEMP 97.2; O2SAT 94
[2023-11-28 06:50] LABS: BLOOD UREA NITROGEN 34 MG/DL (9-23); CARBON DIOXIDE LEVEL 26 MMOL/L (20-31); CHLORIDE LEVEL 106 MMOL/L (98-107); CREATININE FOR GFR 1.25 MG/DL (0.70-1.30); GLOMERULAR FILTRATION RATE > 60.0 (>49); GLUCOSE, FASTING 211 MG/DL (74-106); MAGNESIUM LEVEL 1.9 MG/DL (1.8-2.4); SODIUM LEVEL 142 MMOL/L (136-145)
[2023-11-28 11:59] VITALS: BP 138/72; TEMP 98.6; O2SAT 92
[2023-11-28 21:10] VITALS: BP 138/71; TEMP 98.1; O2SAT 90
[2023-11-29 04:27] VITALS: BP 140/71; TEMP 96.8; O2SAT 94
[2023-11-29 07:35] LABS: HEMOGLOBIN 10.9 g/dl (13.5-17.5); MEAN CORPUSCULAR HEMOGLOBIN 28.2 pg (27.0-33.0); MEAN CORPUSCULAR HGB CONC 31.1 g/dl (32.0-36.5); MEAN CORPUSCULAR VOLUME 90.4 fl (80.0-96.0); PLATELET COUNT, AUTOMATED 280 10^3/uL (150-450); RED BLOOD COUNT 3.87 10^6/uL (4.30-6.10); WHITE BLOOD COUNT 10.3 10^3/uL (4.0-10.0)
[2023-11-29 07:57] LABS: BLOOD UREA NITROGEN 33 MG/DL (9-23); CALCIUM LEVEL 9.3 MG/DL (8.3-10.6); CARBON DIOXIDE LEVEL 28 MMOL/L (20-31); CHLORIDE LEVEL 105 MMOL/L (98-107); CREATININE FOR GFR 1.19 MG/DL (0.70-1.30); GLOMERULAR FILTRATION RATE > 60.0 (>49); GLUCOSE, FASTING 165 MG/DL (74-106); SODIUM LEVEL 140 MMOL/L (136-145)
[2023-11-29 12:15] VITALS: BP 158/76; TEMP 98.4; O2SAT 95
[2023-11-29 19:59] VITALS: BP 152/74; TEMP 97; O2SAT 93
[2023-11-30 04:54] VITALS: BP 150/75; TEMP 97.9; O2SAT 92
[2023-11-30 07:08] LABS: BLOOD UREA NITROGEN 32 MG/DL (9-23); CARBON DIOXIDE LEVEL 27 MMOL/L (20-31); CHLORIDE LEVEL 106 MMOL/L (98-107); CREATININE FOR GFR 1.23 MG/DL (0.70-1.30); GLOMERULAR FILTRATION RATE > 60.0 (>49); GLUCOSE, FASTING 137 MG/DL (74-106); MAGNESIUM LEVEL 1.9 MG/DL (1.8-2.4); SODIUM LEVEL 138 MMOL/L (136-145)
[2023-11-30 20:49] VITALS: BP 151/72; TEMP 97.7; O2SAT 94
[2023-12-01] MEDS: ACETAMINOPHEN TAB 650MG DOSE (2X325MG) PO PRN (02:44)
[2023-12-01 05:04] VITALS: BP 151/71; TEMP 96.6; O2SAT 95
[2023-12-01 08:22] LABS: BLOOD UREA NITROGEN 32 MG/DL (9-23); CARBON DIOXIDE LEVEL 27 MMOL/L (20-31); CHLORIDE LEVEL 108 MMOL/L (98-107); CREATININE FOR GFR 1.16 MG/DL (0.70-1.30); GLOMERULAR FILTRATION RATE > 60.0 (>49); GLUCOSE, FASTING 130 MG/DL (74-106); POTASSIUM SERUM 3.8 MMOL/L (3.5-5.1); SODIUM LEVEL 142 MMOL/L (136-145)
[2023-12-01 20:36] VITALS: TEMP 96.8
[2023-12-01 21:36] VITALS: BP 148/80; O2SAT 94
[2023-12-01] MEDS ORDERED: NICOTINE POLACRILEX 2 MG GUM PO PRN (22:05)
[2023-12-02 04:00] VITALS: BP_SYST 150; TEMP 96.8; O2SAT 94
[2023-12-02 06:44] LABS: HEMOGLOBIN 10.9 g/dl (13.5-17.5); MEAN CORPUSCULAR HEMOGLOBIN 28.8 pg (27.0-33.0); MEAN CORPUSCULAR HGB CONC 32.1 g/dl (32.0-36.5); MEAN CORPUSCULAR VOLUME 89.9 fl (80.0-96.0); PLATELET COUNT, AUTOMATED 261 10^3/uL (150-450); RED BLOOD COUNT 3.78 10^6/uL (4.30-6.10); WHITE BLOOD COUNT 10.1 10^3/uL (4.0-10.0)
[2023-12-02 07:06] LABS: CALCIUM LEVEL 8.9 MG/DL (8.3-10.6); CREATININE FOR GFR 1.33 MG/DL (0.70-1.30); GLOMERULAR FILTRATION RATE 57.6 (>49); MAGNESIUM LEVEL 1.9 MG/DL (1.8-2.4); POTASSIUM SERUM 4.1 MMOL/L (3.5-5.1)
[2023-12-02 12:00] VITALS: BP 154/73; TEMP 97.7; O2SAT 93
[2023-12-02 13:48] VITALS: BP 155/72; TEMP 98.1; O2SAT 94
[2023-12-02 20:00] VITALS: BP 128/72; TEMP 98.2; O2SAT 95
[2023-12-03 04:00] VITALS: BP 150/84; TEMP 98.2; O2SAT 94
[2023-12-03 06:58] LABS: BLOOD UREA NITROGEN 31 MG/DL (9-23); CALCIUM LEVEL 9.1 MG/DL (8.3-10.6); CARBON DIOXIDE LEVEL 27 MMOL/L (20-31); CHLORIDE LEVEL 106 MMOL/L (98-107); CREATININE FOR GFR 1.16 MG/DL (0.70-1.30); GLOMERULAR FILTRATION RATE > 60.0 (>49); GLUCOSE, FASTING 189 MG/DL (74-106); POTASSIUM SERUM 3.9 MMOL/L (3.5-5.1); SODIUM LEVEL 140 MMOL/L (136-145)
[2023-12-03 08:40] VITALS: BP 148/84
[2023-12-03] MEDS ORDERED: AMOX875T2 PO (10:16)
== END 2023-12-03 11:15 | DRG 622 ==
LOC: M ED 14:58 → M ED INP 11-17 09:22 → M PCU 11-17 14:16 → M MS5PR 11-20 06:25
PROVIDERS: ADMIT Student in an Organized Health Care Education/Training Program; ATTEND Hospitalist
PROC: 0JBR0ZZ Excision of Left Foot Subcutaneous Tissue and Fascia, Open Approach (ICD-10-PCS; principal; 2023-11-19)
DX: E11.621 Type 2 diabetes mellitus with foot ulcer (principal); J18.9 Pneumonia, unspecified organism; J96.01 Acute respiratory failure with hypoxia; I50.33 Acute on chronic diastolic (congestive) heart failure; L97.428 Non-pressure chronic ulcer of left heel and midfoot with other specified severity; L03.116 Cellulitis of left lower limb; R78.81 Bacteremia; E11.319 Type 2 diabetes mellitus with unspecified diabetic retinopathy without macular edema; F17.210 Nicotine dependence, cigarettes, uncomplicated; E11.40 Type 2 diabetes mellitus with diabetic neuropathy, unspecified; I87.2 Venous insufficiency (chronic) (peripheral); I11.0 Hypertensive heart disease with heart failure; R29.6 Repeated falls; B96.4 Proteus (mirabilis) (morganii) as the cause of diseases classified elsewhere; B95.61 Methicillin susceptible Staphylococcus aureus infection as the cause of diseases classified elsewhere; B95.2 Enterococcus as the cause of diseases classified elsewhere; R53.81 Other malaise; Z85.810 Personal history of malignant neoplasm of tongue; Z89.511 Acquired absence of right leg below knee; Z79.84 Long term (current) use of oral hypoglycemic drugs; Z79.899 Other long term (current) drug therapy

== ENCOUNTER 2024-12-18 09:58 | Emergency (ER) | payer MEDICARE ==
[~2024-12-18] VITALS: Ht 182.9 cm; Wt 104.5 kg
[~2024-12-18 09:58] MED LIST changes: +ACIDCAP PO; +AMOX875T2 PO; +BACI1CAP PO; +GLIP-320 PO; -GLIP10TA18 PO
[2024-12-18] MEDS ORDERED: LISI20TA33 (10:07)
[2024-12-18 11:34] LABS: BASO # 0.1 10^3/uL (0.0-0.2); BASO % 0.4 % (0.0-1.0); EOS # 0.2 10^3/uL (0.0-0.5); EOS % 1.5 % (0.0-3.0); LYMPH # 1.1 10^3/uL (1.5-5.0); LYMPH % 8.7 % (24.0-44.0); MONO # 0.8 10^3/uL (0.0-0.8); MONO % 6.4 % (2.0-8.0); NEUTROPHILS # 10.8 10^3/uL (1.5-8.5); NEUTROPHILS % 82.7 % (36.0-66.0); PLATELET COUNT, AUTOMATED 277 10^3/uL (150-450)
[2024-12-18 11:43] LABS: ERYTHROCYTE SEDIMENTATION RATE 76 mm/hr (0-20)
[2024-12-18 11:58] LABS: C REACTIVE PROTEIN QUANTITATIV 6.5 MG/DL (<1.0)
[2024-12-18 11:59] LABS: ALT/SGPT 21.0 U/L (7.0-40); AST/SGOT 18.0 U/L (<34); CALCIUM LEVEL 9.4 MG/DL (8.3-10.6); CARBON DIOXIDE LEVEL 22.0 MMOL/L (20-31); CHLORIDE LEVEL 108.0 MMOL/L (98-107); CREATININE FOR GFR 2.66 MG/DL (0.70-1.30); GLOMERULAR FILTRATION RATE 25.8 (>49); POTASSIUM SERUM 4.8 MMOL/L (3.5-5.1); SODIUM LEVEL 143.0 MMOL/L (136-145)
[2024-12-18] MEDS ORDERED: CEPH500C PO (12:40)
[2024-12-18 12:50] VITALS: BP 158/72; TEMP 97.8; O2SAT 95
== END 2024-12-18 13:08 | disposition home or self-care (01) ==
LOC: M ED 09:58
DX: N17.9 Acute kidney failure, unspecified (principal); T25.322A Burn of third degree of left foot, initial encounter; X12.XXXA Contact with other hot fluids, initial encounter; Y92.009 Unspecified place in unspecified non-institutional (private) residence as the place of occurrence of the external cause; Y93.9 Activity, unspecified; Y99.9 Unspecified external cause status; E11.9 Type 2 diabetes mellitus without complications

== ENCOUNTER → 2025-01-26 | Outpatient (REF) | payer MEDICARE ==
[~2025-01-26] MED LIST changes: -ACIDCAP PO; +CEPH500C PO; +LISI20TA33; +[UNRECOGNIZED DRUG - OTHER] PO
[2025-01-26 14:51] LABS: ALT/SGPT 16.0 U/L (7.0-40); AST/SGOT 23.0 U/L (<34); CALCIUM LEVEL 9.1 MG/DL (8.3-10.6); CARBON DIOXIDE LEVEL 23.0 MMOL/L (20-31); CHLORIDE LEVEL 108.0 MMOL/L (98-107); CREATININE FOR GFR 2.37 MG/DL (0.70-1.30); GLOMERULAR FILTRATION RATE 29.7 (>49); POTASSIUM SERUM 4.7 MMOL/L (3.5-5.1); SODIUM LEVEL 144.0 MMOL/L (136-145)
[2025-01-26 15:25] LABS: ESTIMATED AVERAGE GLUCOSE 151.0 MG/DL (60-110)
== END ==
LOC: M SFHCADAM 10:13
PROVIDERS: ATTEND Family Medicine
DX: E11.69 Type 2 diabetes mellitus with other specified complication (principal)

== ENCOUNTER → 2025-02-04 | Outpatient (REF) | payer MEDICARE ==
[2025-02-04 17:40] LABS: CREATININE, URINE 122.7 MG/DL
[2025-02-04 17:51] LABS: MALB URINE SIEMENS 485.0 MG/L; MAU/CREAT RATIO 395.2 MCG/MG (0.0-30.0)
== END ==
LOC: M SFHCADAM 11:10
PROVIDERS: ATTEND Family Medicine
DX: R79.89 Other specified abnormal findings of blood chemistry (principal)